=== PATIENT | female | born 1990 | race American Indian/Alaskan Native ===

== ENCOUNTER 2017-04-20 00:23 | Emergency (ER) | payer MEDICAID ==
[2017-04-20 01:08] LABS: Basophils % (Auto) 0.2 % (0.0-1.8); Eosinophils % (Auto) 2.9 % (0.0-4.3); Hematocrit 29.2 % (30.3-42.9); Hemoglobin 9.7 gm/dl (10.1-14.3); Mean Corpuscular HGB Conc 33 % (30-34); Mean Corpuscular Hemoglobin 26 pg (28-32); Mean Corpuscular Volume 80 fl (79-97); Platelet Count 217 K/mm3 (140-440); Red Blood Count 3.67 M/mm3 (3.65-5.03); White Blood Count 7.2 K/mm3 (4.5-11.0)
[2017-04-20 01:12] LABS: Red Cell Distribution Width 20.4 % (13.2-15.2)
[2017-04-20 01:28] LABS: Alanine Aminotransferase 7 units/L (7-56); Albumin 3.6 g/dL (3.9-5); Albumin/Globulin Ratio 1.2 %; Alkaline Phosphatase 56 units/L (35-129); Anion Gap 18 mmol/L; Bilirubin,Total < 0.20 mg/dL (0.1-1.2); Blood Urea Nitrogen 14 mg/dL (7-17); Calcium 8.9 mg/dL (8.4-10.2); Carbon Dioxide 22 mmol/L (22-30); Chloride 99.9 mmol/L (98-107); Glucose 92 mg/dL (65-100); Lipase 42 units/L (13-60); Potassium 4.5 mmol/L (3.6-5.0); Sodium 135 mmol/L (137-145); Total Protein 6.7 g/dL (6.3-8.2)
[2017-04-20 01:53] LABS: Bilirubin,Urine NEG (Negative); Blood,Urine NEG (Negative); Ketones,Urine NEG (Negative); Leukocyte Esterase,Urine NEG (Negative); Mucus,Urine 2+ /HPF; Nitrite,Urine NEG (Negative); Urobilinogen,Urine < 2.0 mg/dL (<2.0)
[2017-04-20 03:54] VITALS: BP 141/78
--- NOTE | 2017-04-20 05:17 | Ultrasound Report ---
FINAL REPORT EXAM: US OB \T\lt; = 14 WEEKS FETUS HISTORY: abd pain . LMP 01/19/2017. TECHNIQUE: First trimester obstetric ultrasound was performed. PRIORS: None. FINDINGS: The uterus measures 13.7 x 11.2 x 11 centimeter. There is evidence of a single live intrauterine gestation. The crown-rump length measures 7.6 centimeter. The heart rate is 152 beats per minute. The placenta is posterior and low lying. The amniotic fluid volume appears normal. The estimated gestational age is 13 weeks, 5 days. The estimated due date is 10/21/2017. The gestational age by LMP is 13 weeks. The right ovary measures 2.5 x 2.1 x 1.7 centimeter. There is a 1.5 centimeter right ovarian cyst. The left ovary measures 3.3 x 2.4 x 2.7 centimeter. There is a 1.2 centimeter left ovarian cyst. IMPRESSION: Single live intrauterine gestation measuring 13 weeks, 5 days. Low-lying, posterior placenta.
== END 2017-04-20 05:00 | disposition left against medical advice (07) ==
LOC: ED 00:23
DX: R10.9 Unspecified abdominal pain (principal); R11.10 Vomiting, unspecified; R42 Dizziness and giddiness; R55 Syncope and collapse; Z53.21 Procedure and treatment not carried out due to patient leaving prior to being seen by health care provider
CPT/HCPCS: 36415; 76801; 80053; 81001; 81025; 83690; 85025